=== PATIENT | female | born 1970 | race Caucasian/White ===

== ENCOUNTER → 2016-08-26 | Outpatient (CLI) | payer BC ==
--- NOTE | 2016-08-26 17:10 | CT ---
EXAMINATION TYPE: CT abdomen pelvis w con DATE OF EXAM: 08/26/2016 COMPARISON: NONE HISTORY: Right lower abdominal and pelvic pain. CT DLP: 386.50 mGycm Automated exposure control for dose reduction was used. TECHNIQUE: Helical acquisition of images was performed from the lung bases through the pelvis. CONTRAST: Performed with Oral Contrast and with IV Contrast, patient injected with 100 mL of Omnipaque 300. FINDINGS: Lung bases are clear. There is no pleural effusion. There is right breast implant. Heart size is norm al. Liver spleen pancreas gallbladder appear normal. Bile ducts are nondilated. There is no adrenal mass. There is a 3 cm cortical cyst on the lateral right kidney. There is no hydronephrosis. Kidneys have normal size. There is no retroperitoneal adenopathy. Bladder distends smoothly. There is no sign of a pelvic mass. I see no intestinal wall thickening. Th ere are no dilated loops. Appendix appears normal. There are minor degenerative changes in the lumbar spine. Hysterectomy is noted. There is moderate posterior disc herniation at L5-S1 to the right side . There is also posterior disc herniation at L3-4 in the midline. IMPRESSION: NORMAL APPENDIX. NO SIGN OF ACUTE ABDOMEN AND PELVIS. POSTERIOR RIGHT-SIDED L5-S1 DISC HERNIATION. RI GHT RENAL CORTICAL CYST.
== END | disposition home or self-care (01) ==
LOC: RADCTMAIN 15:19
PROVIDERS: ATTEND Family Medicine
DX: N28.1 Cyst of kidney, acquired (principal)
CPT/HCPCS: 74177; Q9967

== ENCOUNTER → 2016-09-13 | Outpatient (CLI) | payer BC ==
--- NOTE | 2016-09-13 15:45 | MR ---
EXAMINATION TYPE: MR lumbar spine wo con DATE OF EXAM: 09/13/2016 COMPARISON: CT abdomen pelvis August 26, 2016 HISTORY: ddd and lumbago with right-sided sciatica per order. Back pain for one month going into righ t buttocks and thigh per patient. TECHNIQUE: Multiplanar, multisequence imaging of the lumbar spine is performed without IV contrast. FINDINGS: Sagittal images of the lumbar spine show vertebral body right to appear satisfactory. There is dextroconvex scoliosis centered in the mid lumbar spine redemonstrated. The intervertebral discs demonstrate normal multilevel disc desiccation. Disc space heights are fairly well-maintained. Multi level small posterior disc herniations are seen on sagittal images most prominent at L3-L4 and L5-S1 levels. The conus medullaris is normal in position and signal ending at inferior L1 level. Mild to mo derate multilevel anterior spurring is seen. There is heterogeneous endplate changes most prominent i n the mid lumbar spine. Axial images show the T12-L1 level to appear within normal limits. Axial images at L1-L2 level show mild broad based posterior disc protrusion effacing anterior thecal sac on axial image 30, bilateral neural foramina are patent. Axial images at L2-L3 level show mild to moderate broad-based disc bulge mildly effacing anterior the kisha sac, bilateral neural foramina are patent. Axial images at L3-L4 level show moderate broad-based posterior disc protrusion effacing anterior the kisha sac on axial image 20 and causing asymmetric mild left-sided anterior inferior neural foraminal n arrowing. Right-sided neural foramen is patent. Axial images at L4-L5 level show mild to moderate ligamentum flavum hypertrophy with some effacement the posterior lateral thecal sac. There is broad-based posterior disc bulge mildly effacing anterior thecal sac. There is mild to minimal bilateral anterior inferior neural foraminal narrowing. Axial images at L5-S1 level show broad-based right foraminal disc protrusion on axial image 10 with s ome effacement of the anterolateral thecal sac. Left-sided neural foramen is patent. There is moderat e right-sided neural foraminal narrowing with some encroachment suspected in the exiting right L5 ner ve seen on sagittal image 9 and axial image 10. Lobulated 2.0 x 1.7 cm cystic lesion laterally upper pole level right kidney likely reflecting [place] k type II cyst is redemonstrated on axial image 32 without significant interval change. IMPRESSION: Multilevel degenerative changes in the lumbar spine as detailed above, attention to L5-S1 level where foraminal disc herniation appears to be encroaching upon exiting right L5 nerve.
== END | disposition home or self-care (01) ==
LOC: RADMRIMAIN 13:26
PROVIDERS: ATTEND Physician Assistant Medical
DX: M51.27 Other intervertebral disc displacement, lumbosacral region (principal); M47.816 Spondylosis without myelopathy or radiculopathy, lumbar region
CPT/HCPCS: 72148

== ENCOUNTER → 2017-10-03 | Outpatient (CLI) | payer BC ==
--- NOTE | 2017-10-03 10:39 | XR ---
EXAMINATION TYPE: XR foot complete RT DATE OF EXAM: 10/03/2017 COMPARISON: 11/13/2014 HISTORY: Pain TECHNIQUE: Three views are submitted. FINDINGS: Postsurgical change and arthropathy first digit. Remaining joint spaces preserved and osseous structu res appear intact. Calcaneal spur noted. IMPRESSION: 1. No acute fracture or dislocation. If symptoms persist, follow-up exam in 7 to 10 days could be ob tained.
== END | disposition home or self-care (01) ==
LOC: RADXRYALE 10:09
PROVIDERS: ATTEND Physician Assistant Medical
DX: M79.671 Pain in right foot (principal)

== ENCOUNTER → 2019-05-27 | Outpatient (CLI) | payer BC ==
--- NOTE | 2019-05-27 16:49 | XR ---
EXAMINATION TYPE: XR abdomen 2V DATE OF EXAM: 05/27/2019 CLINICAL HISTORY: Right lower quadrant pain. TECHNIQUE: Supine and upright views of the abdomen are obtained. COMPARISON: CT abdomen and pelvis August 26, 2016. FINDINGS: Scattered gas is seen in non-distended stomach and small bowel loops. Gas and fecal mater ial is seen in non-distended colon. There is no visceromegaly, pneumoperitoneum, or abnormal calcif ication appreciated. Underlying dextroconvex scoliosis centered at L3-L4 level. Disc space narrowing and spurring with sclerosis left L3-L4 level. IMPRESSION: Overall nonobstructive bowel gas pattern.
== END | disposition home or self-care (01) ==
LOC: RADXRYALE 15:45
PROVIDERS: ATTEND Physician Assistant Medical
DX: R10.31 Right lower quadrant pain (principal)
CPT/HCPCS: 74019

== ENCOUNTER → 2019-05-27 | Outpatient (CLI) | payer BC ==
[2019-05-27 19:33] LABS: Basophils # (A) 0.1 k/uL (0-0.2); Basophils % (A) 1 %; Eosinophils # (A) 0.2 k/uL (0-0.7); Eosinophils % (A) 2 %; HCT 44.6 % (34.0-46.0); HGB 15.1 gm/dL (11.4-16.0); Lymphocytes # (A) 2.7 k/uL (1.0-4.8); Lymphocytes % (A) 35 %; MCHC 33.9 g/dL (31.0-37.0); MCV 97.3 fL (80.0-100.0); Mean Platelet Volume 7.5; Monocytes # (A) 0.3 k/uL (0-1.0); Monocytes % (A) 4 %; Neutrophils # (A) 4.5 k/uL (1.3-7.7); Neutrophils % (A) 57 %; Platelet Count 290 k/uL (150-450); RBC 4.59 m/uL (3.80-5.40); RDW 11.5 % (11.5-15.5); WBC 7.9 k/uL (3.8-10.6)
[2019-05-27 19:41] LABS: ALT 15 U/L (4-34); AST 28 U/L (14-36); African American GFR (CKD) >90 (>60 ml/min/1.73 sqM); Albumin 4.9 g/dL (3.5-5.0); Alkaline Phosphatase 87 U/L (38-126); Anion Gap 9 mmol/L; Blood Urea Nitrogen 12 mg/dL (7-17); Calcium 9.9 mg/dL (8.4-10.2); Carbon Dioxide 28 mmol/L (22-30); Chloride 98 mmol/L (98-107); Glucose 89 mg/dL (74-99); Non-African American GFR(CKD) >90 (>60 ml/min/1.73 sqM); Potassium 4.3 mmol/L (3.5-5.1); Sodium 135 mmol/L (137-145); Total Bilirubin 0.8 mg/dL (0.2-1.3); Total Protein 7.9 g/dL (6.3-8.2)
--- NOTE | 2019-05-27 19:59 | CT ---
EXAMINATION TYPE: CT abdomen pelvis w con DATE OF EXAM: 05/27/2019 HISTORY: RLQ pain x6 days CT DLP: 603.3mGycm Automated Exposure Control for Dose Reduction was Utilized. CONTRAST: CT scan of the abdomen and pelvis is performed with IV Contrast, patient injected with 100 mL of Isov ue 300. COMPARISON: CT abdomen and pelvis August 26, 2016 FINDINGS: LUNG BASES: Redemonstration of partial visualized right breast implant with internal linear density p ossible intracapsular rupture unchanged from prior. LIVER/GB: No significant abnormality is appreciated. PANCREAS: No significant abnormality is seen. SPLEEN: No significant abnormality is seen. ADRENALS: No significant abnormality is seen. KIDNEYS: There is simple appearing thin-walled 2.1 cm cyst laterally upper pole of the right kidney a xial image 22 redemonstrated. Symmetric cortical medullary uptake and excretion from both kidneys wit hout hydronephrosis. BOWEL: Oral contrast reaches the distal transverse colon. No suspicious small or large bowel dilatati on. Appendix upper limits of normal measuring 6 mm near base and gradually tapers without surrounding inflammatory change. Appendix best seen coronal images 36 through 41. Portion is contrast-filled. UTERUS/ADNEXA: Uterus is surgically absent or markedly atrophic. LYMPH NODES: No greater than 1cm abdominal or pelvic lymph nodes are appreciated. OSSEOUS STRUCTURES: Transitional type L6 vertebra. Dextroconvex scoliosis centered at L3 level. Mild- to-moderate multilevel disc space narrowing and spurring. Facet arthropathy lower lumbar levels. OTHER: No significant additional abnormality is seen. IMPRESSION: No CT evidence for acute appendicitis. No significant acute finding is seen to account fo r patient's clinical symptoms.
== END | disposition home or self-care (01) ==
LOC: RADCTMAIN 17:39
PROVIDERS: ATTEND Physician Assistant Medical
DX: R10.31 Right lower quadrant pain (principal)
CPT/HCPCS: 80053; 85025; 74177; 36415; Q9967

== ENCOUNTER → 2021-02-23 | Outpatient (CLI) | payer BC ==
--- NOTE | 2021-02-23 12:17 | XR ---
EXAM TYPE: LUMBAR SPINE X RAY SERIES COMPARISON: NONE HISTORY: Pain TECHNIQUE: 4 views are submitted. FINDINGS: Alignment is anatomic. The pedicles are intact. The transverse processes are intact. There is curv ature the spine with multilevel hypertrophic and degenerative change. Facet arthropathy L4-5 and L5-S 1. No spondylolisthesis or spondylolysis. Punctate 2 mm right upper quadrant calcification. IMPRESSION: 1. Multilevel degenerative disc disease and facet arthropathy. 2. Punctate calcification the right upper quadrant could represent tiny renal or gallstone correlate clinically.
== END | disposition home or self-care (01) ==
LOC: RADXRYALE 11:32
PROVIDERS: ATTEND Physician Assistant Medical
DX: M51.37 Other intervertebral disc degeneration, lumbosacral region (principal); M46.97 Unspecified inflammatory spondylopathy, lumbosacral region; N28.89 Other specified disorders of kidney and ureter
CPT/HCPCS: 72110